=== PATIENT | female | born 1970 | race Caucasian/White ===

== ENCOUNTER → 2023-09-08 18:44 | Outpatient (REF) | payer OTHER, SELFPAY | LOC: WDC 18:44 | PROVIDERS: ATTENDING PHYSICIAN Obstetrics & Gynecology; FAMILY PHYSICIAN Physician Assistant | DX: Z12.31 Encounter for screening mammogram for malignant neoplasm of breast (principal) | CPT/HCPCS: 77063; 77067 ==

== ENCOUNTER 2023-09-10 06:16 | Day surgery (SDC) | payer OTHER, SELFPAY ==
[2023-09-02 08:19] VITALS: BMI 33.0
[2023-09-02 09:02] LABS: Hematocrit 43.2 % (37.0-47.0); Hemoglobin 14.9 g/dL (12.0-16.0); Mean Corp Hgb Conc. 34.5 g/dL (33.0-37.0); Mean Corpuscular Hgb 30.2 pg (27.0-31.0); Mean Corpuscular Volume 87.6 fL (81.0-99.0); Mean Platelet Volume 9.9 fL (7.4-10.4); Platelet Count 299 10^3/uL (130-400); Red Blood Cell Count 4.93 10^6/uL (4.20-5.40); Red Cell Dist. Width 11.9 % (11.5-14.5)
[2023-09-02 09:35] LABS: INR 0.98
[2023-09-02 09:36] LABS: APTT 31.4 Sec (23.4-35.0)
[2023-09-10] VITALS (8 sets, daily range): BP systolic 148–195; BP diastolic 87–110; BMI 33.0
[2023-09-10] MEDS: NORMOSOL-R 1000 IV (10:41)
== END 2023-09-10 15:00 | disposition home or self-care (01) ==
LOC: SDS 06:16
PROVIDERS: ATTENDING PHYSICIAN Obstetrics & Gynecology; FAMILY PHYSICIAN Physician Assistant
DX: N88.9 Noninflammatory disorder of cervix uteri, unspecified (principal); N93.9 Abnormal uterine and vaginal bleeding, unspecified
CPT/HCPCS: 58558; 88305; 36415; 85027; 85610; 85730

== ENCOUNTER → 2024-03-01 15:25 | Outpatient (REF) | payer OTHER, SELFPAY | LOC: RAD 15:25 | PROVIDERS: ATTENDING PHYSICIAN Physician Assistant; FAMILY PHYSICIAN Physician Assistant | DX: M25.531 Pain in right wrist (principal) | CPT/HCPCS: 73110 ==

== ENCOUNTER → 2024-08-02 10:12 | Outpatient (REF) | payer OTHER, SELFPAY | LOC: HWRAD 10:12 | PROVIDERS: ATTENDING PHYSICIAN Obstetrics & Gynecology; FAMILY PHYSICIAN Physician Assistant | DX: N84.0 Polyp of corpus uteri (principal) | CPT/HCPCS: 76830; 76856 ==

== ENCOUNTER 2024-09-11 06:13 | Day surgery (SDC) | payer OTHER, SELFPAY ==
[2024-09-08 08:47] LABS: % Basophils 0.3 % (0-2); % Eosinophils 1.4 % (0-6); % Immature Granulocytes 0.3 % (0-0.5); % Lymphocytes 24.9 % (20.5-51.1); % Monocytes 7.3 % (1.7-9.3); % Neutrophils 65.8 % (42.2-75.2); Absolute Eosinophils 0.1 10^3/uL (0-0.7); Absolute Monocytes 0.6 10^3/uL (0.1-0.6); Absolute Neutrophils 5.2 10^3/uL (1.4-6.5); Hematocrit 41.9 % (37.0-47.0); Hemoglobin 14.5 g/dL (12.0-16.0); Mean Corp Hgb Conc. 34.6 g/dL (33.0-37.0); Mean Corpuscular Hgb 30.5 pg (27.0-31.0); Mean Corpuscular Volume 88.2 fL (81.0-99.0); Mean Platelet Volume 10.4 fL (7.4-10.4); Nucleated Red Blood Cells % 0 %; Platelet Count 248 10^3/uL (130-400); Red Blood Cell Count 4.75 10^6/uL (4.20-5.40); Red Cell Dist. Width 11.8 % (11.5-14.5); White Blood Cell Count 7.9 10^3/uL (4.8-10.8)
[2024-09-08 08:57] LABS: PT 13.5 Sec (11.4-14.6)
[2024-09-08 08:58] LABS: APTT 28.3 Sec (23.4-35.0)
[2024-09-08 13:58] VITALS: BMI 29.9
[2024-09-11 06:20] VITALS: BP 187/128; BMI 29.9
[2024-09-11 06:37] VITALS: BP 197/119; BP 201/124
--- NOTE | 2024-09-11 06:48 | PTCARENOTE ---
Dr. Dunn aware that patients bp was checked 3 times and that patients BP was high. See MAR for BP's. Patient states that she does not have a history of HTN but in the office one time her BP was high at Dr. Roberson's office. No further orders at the
present time. Also patient stated that she can not take PO Tylenol or any po meds that she can not swallow them. Dr. Dunn made aware to see if patient could receive Tylenol IV in the OR. No further orders at the present time. Will monitor patient.
[2024-09-11] MEDS: NORMOSOL-R/PLASMALYTE-A 1000 IV (06:51)
[2024-09-11 08:32] VITALS: BP 150/88
[2024-09-11 08:45] VITALS: BP 136/79
[2024-09-11 09:00] VITALS: BP 148/85
[2024-09-11 09:15] VITALS: BP 155/89
== END 2024-09-11 09:30 | disposition home or self-care (01) ==
LOC: SDS 06:13
PROVIDERS: ATTENDING PHYSICIAN Obstetrics & Gynecology; FAMILY PHYSICIAN Physician Assistant
DX: D06.9 Carcinoma in situ of cervix, unspecified (principal); N72 Inflammatory disease of cervix uteri
CPT/HCPCS: 57520; 88305; 88307; 85025; 85610; 85730; 86850; 86900; 86901; 88341; 88342

== ENCOUNTER → 2024-09-13 18:14 | Outpatient (REF) | payer OTHER, SELFPAY | LOC: WDC 18:14 | PROVIDERS: ATTENDING PHYSICIAN Obstetrics & Gynecology; FAMILY PHYSICIAN Physician Assistant | DX: Z12.31 Encounter for screening mammogram for malignant neoplasm of breast (principal) | CPT/HCPCS: 77063; 77067 ==

== ENCOUNTER → 2024-11-24 09:34 | Outpatient (REF) | payer OTHER, SELFPAY | LOC: MRI 3T 09:34 | PROVIDERS: ATTENDING PHYSICIAN Obstetrics & Gynecology Gynecologic Oncology; FAMILY PHYSICIAN Physician Assistant | DX: D06.0 Carcinoma in situ of endocervix (principal); R87.810 Cervical high risk human papillomavirus (HPV) DNA test positive | CPT/HCPCS: 72197; A9575 ==

== ENCOUNTER 2025-01-02 06:25 | Day surgery (SDC) | payer OTHER, SELFPAY ==
[2024-12-19 08:46] LABS: Hematocrit 43.8 % (37.0-47.0); Hemoglobin 15.3 g/dL (12.0-16.0); Mean Corp Hgb Conc. 34.9 g/dL (33.0-37.0); Mean Corpuscular Volume 87.4 fL (81.0-99.0); Nucleated Red Blood Cells % 0 %; Platelet Count 261 10^3/uL (130-400); Red Cell Dist. Width 11.8 % (11.5-14.5)
[2024-12-19 09:21] LABS: ALT (SGPT) 42 U/L (0-35); AST (SGOT) 30 U/L (14-36); Albumin 4.5 g/dl (3.5-5.0); Alkaline Phosphatase 80 U/L (38-126); Blood Urea Nitrogen 17 mg/dl (7-17); Calcium 9.7 mg/dl (8.4-10.2); Carbon Dioxide 29 mmol/L (22-30); Chloride 106 mmol/L (98-107); Glucose 189 mg/dl (70-99); Potassium 4.9 mmol/L (3.5-5.1); Sodium 141 mmol/L (135-145); Total Protein 7.7 g/dl (6.3-8.2); eGFR > 60.00
[2024-12-19 13:59] VITALS: BMI 29.1
--- NOTE | 2025-01-01 08:01 | W.CON.GYNONC ---
Chief Complaint
-
AIS cervix
History of Present Illness
54�year�old woman referred to me by Dr. Crystal Roberson.
Pap smear July 09, 2023 showed atypical glandular cells favor neoplastic process, high risk HPV detected
Patient underwent endometrial curetting September 10, 2023 which reveals inactive endometrium scant strips of squamous and
endocervical epithelium with no significant pathologic findings
Pap smear was repeated July 12, 2024 which revealed atypical glandular cells of endocervical origin favor neoplastic process,
high risk HPV was detected
Ultrasound of pelvis was performed August 02, 2024 demonstrates uterus 5.3 x 4 x 5.3 cm with multiple leiomyoma measuring
between 1.1 and 2.7 cm, endometrium is 3 mm there is no endometrial fluid or soft tissue lesions. Right ovary is 1.3 x 1.7 cm left
ovary is 1.9 x 2 cm. There is no free fluid.
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
adenocarcinoma in situ of the cervix. Endometrial biopsy shows disrupted fragments of Proliferative to inactive endometrial glands
admixed mucus and blood.
Patient was taken to the operating room on September 11, 2024 for a cold knife cone biopsy with ECC. Pathology shows focal residual
adenocarcinoma in situ 12�3 o'clock as well as 9�12 o'clock. Margins are negative. Cervix shows chronic inflammation and focal
hemorrhage. ECC shows predominantly mucus and blood with exceedingly scant crushed endocervical epithelium
MRI�of�the�pelvis�was�done�which�shows�uterus�to�be�anteverted�5.7�cm,�endometrium�6 mm,�junctional�zone�9�mm,�there�is�adenomyosis.�There�is�an�anterior�fundal�subserosal�fibroid�2.5�cm.�Ovaries�are�unremarkable
1.6�cm�on�the�right�and�1.6�cm�on�the�left.�As�there�is�no�free�fluid�or�adenopathy.
Past gynecologic history significant for normal Pap smears until last 2 mentioned above. 2 prior vaginal deliveries, 1 spontaneous
, 1 therapeutic , menarche at age 14, menopause at age 52
Past medical history significant for neuropathy
Past surgical history significant for tubal ligation, breast reduction, cholecystectomy, D&C
Medication patient takes pregabalin
Allergies none
Social history patient does not smoke denies alcohol or drug or marijuana use
Screening studies include: Up�to�date with mammography this year, never had colonoscopy
Social�History Patient�denies�ever�using�tobacco. Denies�any�prior�alcohol�use. Denies�any�illicit�drug�use. Patient�has�not�had�any�occupational�exposure. Marital�Status:�Patient�is� Gynecological�History
Age�at�Menarche�14�years.�Age�at�menopause:�52�years.�Patient�reports�4�pregnancies. No�history�of�hormone�replacement�therapy.
Medical History
Allergies
Allergies reflect when allergies were last updated in [email or web address].
No Known Allergies Allergy (Verified 12/26/24 09:48)
Physical Exam
Physical Exam
Pelvic Examination:
External normal labia, urethra, anus.
Vagina: Normal mucosa.
Cervix: Status post conization, on the right side it is flush with the fornix, there is granulation tissue in the bed
Uterus: normal size. Parametria are without any nodularity or fixation
Adnexa: No pelvic mass.
RVE: no masses or nodularity
General: Well developed, well nourished patient. In no acute distress.
Neck: No thyromegaly. No cervical lymphadenopathy.
Lungs: Clear to auscultation. Good air movement bilaterally.
Cardiac: Regular rate. Regular rhythm. No murmurs appreciated.
Right Breast: No masses or dimpling. No nipple discharge.
Left Breast: No masses or dimpling. No nipple discharge.
Abdomen: Abdomen is soft. Non�tender to palpation. Non�distended.
Extremities: No edema.
Hematologic/Lymphatic: No palpable lymphadenopathy.
Musculoskeletal: Normal range of motion. Strength and Tone are normal.
Skin:Non�jaundiced. No petechia. No purpura.
Neurologic: Speech is fluent. Normal gait and station. Cranial nerves intact.
Results
-
12/19/24 08:26
12/19/24 08:26
Impression / Plan
-
54�year�old�woman�who�has�new�diagnosis�of�adenocarcinoma�in�situ�of�the�cervix�status�post�cold�knife�cone�biopsy�with negative�margins.
I�spoke�to�the�patient�at�length�about�the�effects�of�high�risk�HPV�virus�infection�on�lower�genital�tract�and�development�of
Intraepithelial�neoplasia�both�squamous�and�glandular�type.�She�understands�that�this�is�a�precancerous�lesion.�Her�clinical examination�is�otherwise�normal�and�I�do�not�see�any�gross�evidence�of�cervix�cancer.
She�is�agreeable�to�surgery�for�definitive�management,�
we�are�planning�for�robotic�assisted�total�laparoscopic�hysterectomy�bilateral salpingo�oophorectomy We�discussed�pros�and�cons�of�leaving�ovaries�in�situ�versus�removing�it,�she�has�options�and�we�discussed�risk�benefits�and alternative
Risks�of�surgery�including�infection�bleeding�injury�to�adjacent�organs�DVT�pulmonary�embolism�and�cardiovascular�complications were�discussed�and�reviewed
[2025-01-02] VITALS (9 sets, daily range): BP systolic 163–179; BP diastolic 80–108; BMI 29.1
--- NOTE | 2025-01-02 11:23 | PTCARENOTE ---
Anesthesia Dr. Reyes aware of patients elevated BP. No further orders.
[2025-01-02] MEDS: CELEBREX 200 MG PO (11:25)
[2025-01-02] MEDS: TYLENOL 1000 MG PO (11:25)
[2025-01-02] MEDS: NEURONTIN 300 MG PO (11:25)
[2025-01-02] MEDS: NORMOSOL-R/PLASMALYTE-A 1000 IV (11:49)
[2025-01-02] MEDS: HEPARIN 5000 UNITS SC (12:32)
[2025-01-02] MEDS: DILAUDID 0.5 MG IV (15:21)
--- NOTE | 2025-01-02 16:02 | OR.RPT ---
Operative Report
Operative Report
Date of Procedure: 01/02/2025
Primary Surgeon: Donaldo Galan MD
Assisting Surgeon: Doug Wheat PA-C
Pre-op Diagnosis: Adenocarcinoma in situ of cervix
Post-op Diagnosis: Same
Procedure Performed:
Robotic Total Laparoscopic Hysterectomy, bilateral salpingectomy
Transverse abdominal plane block
Anesthesia Type: General Endotracheal intubation
Specimen / Cultures: Uterus and cervix, bilateral tubes
Estimated Blood Loss: 50 cc
Complications: None
Operative Findings: Survey of the abdomen reveals upper abdomen including liver spleen stomach diaphragms to be within normal limits, uterus and cervix as well as bilateral tubes and ovaries appear to be within normal limits, there are no
significant abnormality involving the visualized portions of the bowel examined today.
Procedure in detail: This patient was brought to the operating room placed in supine position, general anesthesia was administered she was intubated without any difficulty. Arms were wrapped in foam and placed along the patient's side and protected
across all joints. The patient was placed in dorsolithotomy position using yellowfin stirrups. The patient was prepped and draped on the abdomen perineum and vagina and upper thighs. Timeout procedure was carried out, she received appropriate
antibiotics and had received DVT prophylaxis. Next Nj catheter was placed under sterile conditions for drainage of the bladder. We examined the cervix, anterior lip was grasped with single-tooth tenaculum. I was able to dilate the uterine
canal which sounded to 7 cm, uterine manipulator refrigeration supervisor type with 3.5 cm AISLINN ring was inserted into the uterine cavity, vaginal cuff occluder was insufflated. Attention was turned to the abdomen, Veress needle was inserted just below the left
subcostal margin and pneumoperitoneum was created with CO2 gas up to pressure of 15 mmHg. 8 mm X I trocar was inserted just 25 cm cephalad to symphysis pubis into the peritoneal cavity, inspection with camera revealed adhesions along the midline
which were prohibitive initially but we were able to place the right and left upper quadrant 8 mm XI ports as well as 8 mm XI ports in the right and left lateral abdomen.
Tap block was performed with a total of 60 cc ropivacaine and Decadron mixture injected 2 fingerbreadths below right and left lateral aspect of subcostal margin under direct visualization distributed equally as well as right and left mid abdomen.
Once this was completed the patient was placed in the lithotomy position a 28 degrees, robotic system was docked. Right and left round ligaments were sealed and divided anterior and posterior leaves of the broad ligament were dissected open.
Bilateral retroperitoneal spaces in the pelvis were opened and the course of ureters were visualized. An avascular window was created between ureter and ovarian vessels. Both fallopian tubes appeared to have been disrupted previously, likely due
to tubal ligation. The distal portion of the fallopian tube was grasped and elevated and carefully peeled off and the attachments of the mesosalpinx to the ovary were sealed and divided. Next the utero-ovarian ligaments as well as any blood
vessels to the ovary were sealed and divided and they were detached from the uterus. Next bladder flap was sharply developed and advanced below the cervicovaginal junction here she had also extensive fibrotic adhesions which carefully was sharply
divided. Uterine arteries were sealed after they were skeletonized and divided bilaterally. Uterosacral ligaments remainder of the paracervical tissue was sealed and divided circumferential incision was made over the AISLINN ring until the specimen
was detached. We were able to remove uterus and cervix bilateral tubes and ovaries through the vagina. The vaginal apex was closed with [id number] sutures of 0 Vicryl incorporating uterosacral ligaments for support on right and left sides
separately. 3-0 Vicryl suture was used to control small bleeding vessels in the left parametria carefully while considering and visualizing the course of ureter separately. The vaginal cuff otherwise was closed with a running suture of V-Loc
suture starting from right to the left side and a second layer coming back to the right side. Pelvis was irrigated and there was no evidence of bleeding. All laparoscopic ports were removed robotic system was docked and pneumoperitoneum was
released. The skin incisions were closed with 4-0 Monocryl in a subcuticular fashion. There was no indication to close the fascia as all port sites were below 8 mm in size. Nj catheter was removed uterine manipulator had already been removed
and the vagina was irrigated and there was no lacerations present. Patient was awakened extubated and returned back to recovery room stable awake and extubated condition counts of laps instruments and needle was correct x 2. I was present and
scrubbed for entire procedure as dictated above
Disposition: To PACU stable awake and extubated
[2025-01-02] MEDS: ROXICODONE 5 MG PO (17:24)
== END 2025-01-02 17:52 | disposition home or self-care (01) ==
LOC: SDS 06:25
PROVIDERS: ATTENDING PHYSICIAN Obstetrics & Gynecology Gynecologic Oncology; FAMILY PHYSICIAN Physician Assistant
DX: D25.9 Leiomyoma of uterus, unspecified (principal); N73.6 Female pelvic peritoneal adhesions (postinfective)
CPT/HCPCS: 58571; 36415; 80053; 85025; 86850; 86900; 86901; 88304; 88309; 93005